=== PATIENT | male | born 1970 | race Hispanic/Latino ===

== ENCOUNTER 2019-10-22 12:30 | Inpatient (IN) | payer OTHER ==
[~2019-10-22] VITALS: Ht 167.6 cm; Wt 103.0 kg
--- NOTE | 2019-10-22 13:02 | Emergency Department Note ---
History of Present Illnes History of Present Illness Chief Complaint: COVID PUI History of Present Illness This is a 49 year old male arrives to the ED with complaints of cough shortness of breath. Patient states he tested positive for CoVID 19 and his symptoms are worsening. Patient informed his doctors at [facility] and was told to come to the ED . Chief Complaint Comment Patient in from home with reports that he was called today and made aware that his Covid 19 test was positive. Patient reports that his tested positive last week. Patient states that he is experiencing shortness of breath since tuesday night and it has gotten worse since then. Historian: Patient Arrival Mode: Car Onset (how long ago): day(s) Severity: moderate Onset quality: gradual Timing of current episode: constant Progression: worsening Chronicity: new Context: Reports recent illness Relieving factors: none Exacerbating factors: none Associated symptoms: Reports diaphoresis, Reports fever/chills, Reports headaches Past Medical/Family History Physician Review I have reviewed the patient's past medical and family history. Any updates have been documented here. Past Medical History Recent Fever: Yes Clinical Suspicion of Infectio: No New/Unexplained Change in Ment: No Past Medical History: None Other Surgery: Abdominal hernia repair Social History Smoking Cessation: Unknown if ever smoked Other Last Tetanus: UTD Review of Systems Review of Systems Constitutional: Reports fever, Reports weakness EENTM: Reports no symptoms Cardiovascular: Reports no symptoms Respiratory: Reports as per HPI, Reports chest congestion Gastrointestinal: Reports no symptoms Genitourinary: Reports no symptoms Musculoskeletal: Reports no symptoms Integumentary: Reports no symptoms Neurological: Reports no symptoms Psychological: Reports no symptoms Endocrine: Reports no symptoms Hematological/Lymphatic: Reports no symptoms Physical Exam Related Data Allergies: Coded Allergies: No Known Allergies (Unverified , 06/10/11) Triage Vital Signs Vital Signs Date Time Temp Pulse Resp B/P (MAP) Pulse Ox O2 Delivery O2 Flow Rate FiO2 10/22/19 12:38 98.6 117 26 131/89 93 Vital signs reviewed: Yes Physical Exam CONSTITUTIONAL Constitutional: Present well-developed, Present well-nourished, Present ill appearing (tachypnea) HENT HENT: Present normocephalic, Present atraumatic, Present oropharynx clear/moist, Present nose normal HENT L/R: Present left ext ear normal, Present right ext ear normal EYES Eyes: Reports PERRL, Reports conjunctivae normal NECK Neck: Present ROM normal PULMONARY Pulmonary: Present effort normal, Present respiratory distress CARDIOVASCULAR Cardiovascular: Present regular rhythm, Present heart sounds normal, Present capillary refill normal, Present normal rate GASTROINTESTINAL Abdominal: Present soft, Present nontender, Present bowel sounds normal GENITOURINARY Genitourinary: Present exam deferred SKIN Skin: Present warm, Present dry MUSCULOSKELETAL Musculoskeletal: Present ROM normal NEUROLOGICAL Neurological: Present alert, Present oriented x 3, Present no gross motor or s ensory deficits PSYCHOLOGICAL Psychological: Present mood/affect normal, Present judgement normal Results Laboratory Lab results reviewed: Yes Laboratory comments Laboratory Tests Test 10/22/19 12:50 10/22/19 12:47 White Blood Count 4.20 x10e3/uL (4.8-10.8) Red Blood Count 6.06 x10e6/uL (4.3-5.7) Hemoglobin 17.3 g/dL (14.0-18.0) Hematocrit 51.5 % (38.2-49.6) Mean Corpuscular Volume 85.0 fL (81-99) Mean Corpuscular Hemoglobin 28.5 pg (28-32) Mean Corpuscular Hemoglobin Concent 33.6 g/dL (31-35) Red Cell Distribution Width 12.8 % (11.7-14.4) Platelet Count 138 x10e3/uL (140-360) Neutrophils (%) (Auto) 68.8 % (38.7-80.0) Lymphocytes (%) (Auto) 23.1 % (18.0-39.1) Monocytes (%) (Auto) 7.4 % (4.4-11.3) Eosinophils (%) (Auto) 0.0 % (0.0-6.0) Basophils (%) (Auto) 0.2 % (0.0-1.0) Neutrophils # (Auto) 2.9 (2.1-6.9) Lymphocytes # (Auto) 1.0 (1.0-3.2) Monocytes # (Auto) 0.3 (0.2-0.8) Eosinophils # (Auto) 0.0 (0.0-0.4) Basophils # (Auto) 0.0 (0.0-0.1) Absolute Immature Granulocyte (auto 0.02 x10e3/uL (0-0.1) Sodium Level 136 mmol/L (136-145) Potassium Level 3.9 mmol/L (3.5-5.1) Chloride Level 97 mmol/L (98-107) Carbon Dioxide Level 25 mmol/L (22-29) Anion Gap 17.9 mmol/L (8-16) Blood Urea Nitrogen 10 mg/dL (7-26) Creatinine 1.15 mg/dL (0.72-1.25) Estimat Glomerular Filtration Rate > 60 ML/MIN (60-) BUN/Creatinine Ratio 9 (6-25) Glucose Level 108 mg/dL (74-118) Calcium Level 9.0 mg/dL (8.4-10.2) Total Bilirubin 0.7 mg/dL (0.2-1.2) Aspartate Amino Transf (AST/SGOT) 101 IU/L (5-34) Alanine Aminotransferase (ALT/SGPT) 106 IU/L (0-55) Alkaline Phosphatase 137 IU/L (40-150) Creatine Kinase 879 IU/L (30-200) Creatine Kinase MB 0.90 ng/mL (0-5.0) Troponin I 0.008 ng/mL (0-0.300) Total Protein 8.0 g/dL (6.5-8.1) Albumin 3.6 g/dL (3.5-5.0) Globulin 4.4 g/dL (2.3-3.5) Albumin/Globulin Ratio 0.8 (0.8-2.0) Imaging Imaging results reviewed: Yes Impressions IMPRESSION: Mildly increased interstitial and perihilar opacities identified which are nonspecific but can be seen in the setting of edema or an atypical infectious/inflammatory process. No evidence for lobar consolidation. Procedures 12 Lead ECG Interpretation ECG Interpretation : ECG: ECG 2 Rhythm: sinus tachycardia Rate: tachycardia QRS axis: left ST segments normal: Yes Clinical Impression: normal ECG Critical Care Time Total Critical Care Time (min): 45 Critical care time exclusive o: separately billable procedures Critcal care necessary due to: renal failure Comments Patient at high risk of respiratory failure/compromise- required early intervention and frequent re-evaluations in the ED Assessment & Plan Medical Decision Making MDM 49-year-old male arrives the ED with complaint cough, shortness of breath and fever. Patient hypoxic in the ED, require supplemental O2. Patient admitted, pulmonary/nursing department chairperson consulted, infectious disease consultED. Chest x-ray findings reviewed, ceftriaxone and Zithromax ordered. Type and screen done in the event patient may require plasmapheresis. Patient's findings are viral in origin and there is no concerns of bacterial sepsis at time of admission. Assessment & Plan Final Impression: (1) COVID-19 Depart Disposition: ADMITTED Last Vital Signs Date Time Temp Pulse Resp B/P (MAP) Pulse Ox O2 Delivery O2 Flow Rate FiO2 10/22/19 12:38 98.6 117 26 131/89 93 PARVEEN RAMIREZ DO Oct 22, 2019 12:45
[2019-10-22 13:21] LABS: BASOPHILS % 0.2 % (0.0-1.0); HEMATOCRIT 51.5 % (38.2-49.6); HEMOGLOBIN 17.3 g/dL (14.0-18.0); LYMPHOCYTES % 23.1 % (18.0-39.1); MEAN CORPUSCULAR HEMOGLOBIN 28.5 pg (28-32); MEAN CORPUSCULAR HGB CONC 33.6 g/dL (31-35); MONOCYTES # (AUTO) 0.3 (0.2-0.8); MONOCYTES % 7.4 % (4.4-11.3); NEUTROPHILS # (AUTO) 2.9 (2.1-6.9); NEUTROPHILS % 68.8 % (38.7-80.0); PLATELET COUNT 138 x10e3/uL (140-360); RED BLOOD COUNT 6.06 x10e6/uL (4.3-5.7); RED CELL DISTRIBUTION WIDTH 12.8 % (11.7-14.4)
--- NOTE | 2019-10-22 13:39 | NUR ---
consult [id number]
[2019-10-22 13:48] LABS: ALANINE AMINOTRANSFERASE 106 IU/L (0-55); ALBUMIN 3.6 g/dL (3.5-5.0); ALBUMIN/GLOBULIN RATIO 0.8 (0.8-2.0); ALKALINE PHOSPHATASE 137 IU/L (40-150); ANION GAP 17.9 mmol/L (8-16); BLOOD UREA NITROGEN 10 mg/dL (7-26); BUN/CREATININE RATIO 9 (6-25); CARBON DIOXIDE 25 mmol/L (22-29); CHLORIDE 97 mmol/L (98-107); CREATINE KINASE 879 IU/L (30-200); CREATININE, SERUM 1.15 mg/dL (0.72-1.25); EST GLOMERULAR FILTRATION RATE > 60 ML/MIN (60-); GLUCOSE 108 mg/dL (74-118); POTASSIUM 3.9 mmol/L (3.5-5.1); SODIUM 136 mmol/L (136-145)
--- NOTE | 2019-10-22 13:55 | Diagnostic Imaging Report ---
EXAM: CHEST SINGLE (PORTABLE) DATE: 10/22/2019 1:26 PM INDICATION: Shortness breath, chest pain COMPARISON: None FINDINGS: The trachea is midline. There is minimal elevation of the right hemidiaphragm. There are mildly increased interstitial and perihilar opacities present. There is no evidence for large focal consolidation, pneumothorax, or significant pleural effusion. The cardiomediastinal silhouette is within normal limits. No acute osseous abnormality is identified. IMPRESSION: Mildly increased interstitial and perihilar opacities identified which are nonspecific but can be seen in the setting of edema or an atypical infectious/inflammatory process. No evidence for lobar consolidation. Signed by: Dr. Tarik Brooks MD on 10/22/2019 1:51 PM
--- NOTE | 2019-10-22 14:05 | NUR ---
patient arrived to room 184. set up in room and placed on 2L via NC. patient aware to call for help if needed. vitals stable. call light within reach. wctm
[2019-10-22] MEDS ORDERED: ONDANSETRON HCL INJ 2MG/ML 2ML 2 MG/ML VIAL IV PRN (14:15)
[2019-10-22] MEDS ORDERED: ALBUTEROL SULFATE HFA 8GM INHALATION AEROSOL INH PRN (14:15)
[2019-10-22 14:29] VITALS: BP 117/91
[2019-10-22 14:32] VITALS: BP 117/91
[2019-10-22 14:33] VITALS: BP 117/91
[2019-10-22] MEDS ORDERED: SUCCINYLCHOLINE CHLORIDE 20 MG/ML 10ML VIAL ONE (14:48)
[2019-10-22] MEDS ORDERED: ETOMIDATE 2 MG/ML 10 ML INJ IV ONE (14:48)
[2019-10-22] MEDS ORDERED: VECURONIUM BROMIDE FOR INJ 20 MG VIAL ONE (14:48)
[2019-10-22] MEDS ORDERED: WATER STERILE 10 ML VIAL ONE (14:48)
[2019-10-22] MEDS ORDERED: SODIUM CHLORIDE 0.9% 1000ML 1,000 ML ONE (14:54)
[2019-10-22] MEDS: CEFTRIAXONE SOD 1 GM/NS 50 ML 50 ML IV SCH (15:07)
[2019-10-22] MEDS: ASCORBIC ACID 500 MG TAB PO SCH (15:07)
[2019-10-22] MEDS: ACETAMINOPHEN 325 MG TAB PO PRN (15:07)
[2019-10-22] MEDS: AZITHROMYCIN 500MG/NS 250 ML 250 ML IV SCH (15:56)
[2019-10-22] MEDS: SODIUM CHLORIDE 0.9% 1000ML 1,000 ML IV SCH (16:28)
[2019-10-22] MEDS: GUAIFENESIN/CODEINE 10 ML CUP PO PRN ×2 (17:54→22:05)
--- NOTE | 2019-10-22 18:19 | Consultation ---
DATE OF CONSULTATION: HISTORY OF PRESENT ILLNESS: This patient, who is a 49-year-old male, no past medical history, who has been sick for a week. His was sick and she was diagnosed with COVID-19, so they told him to go and check it, he came back positive. The patient comes in because he is little bit short of breath. The patient was just getting fevers and sick in general. The patient is being admitted. I am asked to see him. He is currently lying in bed. His O2 saturation was 88% and he was put on 2 L, and now he is feeling better. PAST MEDICAL HISTORY: He denies. PAST SURGICAL HISTORY: He denies. ALLERGIES: NKA. SOCIAL HISTORY: He drinks occasionally. No smoking, drug abuse, or alcohol abuse. FAMILY HISTORY: Otherwise noncontributory. REVIEW OF SYSTEMS: At present time, HEENT: There is some headache, but there is no visual changes or hearing changes. GI: Some nausea. No vomiting. No diarrhea. CARDIAC: There is no arrhythmia. NEURO: No seizure activity. SKIN: There is no other rash. JOINT: Negative. LABORATORY DATA: Reviewed. His white count 4.2 and hemoglobin 17. His COVID-19 is pending, but outside was positive. Sodium 136, potassium 3.9, and creatinine 1.15. He had a chest x-ray, which was interstitial opacities. PHYSICAL EXAMINATION: GENERAL: Currently alert and oriented. Does not seem to be in acute distress. VITAL SIGNS: Stable, afebrile. HEENT: He is not icteric. NECK: Supple. CHEST: Few crackles. COR: S1 and S2. No S3, S4, or murmur. ABDOMEN: Soft. IMPRESSION: I think the patient with COVID-19 pneumonia, concerned about community-acquired pneumonia. We will put him on Rocephin and azithromycin. Start him on oxygen as needed. Lovenox 30 subcutaneous q.12. Monitor his O2 saturation. Give him zinc p.o. supplement and vitamin C p.o. supplement. Reassess in the morning. MD CHRIS Norwood/FLASH /[id number]
[2019-10-22 18:22] VITALS: BP 127/83
[2019-10-22 20:00] VITALS: BP 127/86
--- NOTE | 2019-10-22 20:00 | NUR ---
Respiratory Therapist made aware of CPAP order by dr. Mckeon.
[2019-10-22 20:52] VITALS: BP 127/86
[2019-10-22] MEDS ORDERED: HEPARIN SOD (PORCINE) 5,000 UNIT/ML VIAL SC SCH (21:00)
--- NOTE | 2019-10-22 21:15 | History and Physical ---
PRIMARY CARE PHYSICIAN: Dr. Dhaliwal at [facility]. CHIEF COMPLAINT: Shortness of breath, cough, fever and chills. HISTORY OF PRESENT ILLNESS: This is a 49-year-old male with no past medical history, presented to the ER with complaints of increasing shortness of breath, fever, chills, cough, and diarrhea. He reports started feeling bad a week ago, he went to his PCP and was tested for COVID, which was positive 4 days ago. He reports his symptoms continue to worsen, with increased shortness of breath, unable to catch his breath. He denies any nausea, vomiting, chest pain, abdominal pain, dysuria, productive cough. Upon arrival to the ER, he was noted to be hypoxic with an O2 saturation of 89% on room air. Chest x-ray shows mildly improved interstitial and perihilar opacities identified, which are nonspecific, but can be seen in the setting of edema or an atypical infectious inflammatory process. He is admitted for further evaluation and management. PAST MEDICAL HISTORY: None. PAST SURGICAL HISTORY: Reports hernia repair x3. FAMILY MEDICAL HISTORY: He reports father has high blood pressure. SOCIAL HISTORY: He denies tobacco or illicit drug use. Reports occasional alcohol use. ALLERGIES: NO KNOWN DRUG ALLERGIES. REVIEW OF SYSTEMS: A 12-system review was negative except as stated in the HPI. PHYSICAL EXAMINATION: VITAL SIGNS: Temperature 100.5, pulse is 117, respirations 20, blood pressure 117/91, pulse ox is 89 on room air. LABORATORY DATA: WBC 4.20, hemoglobin 17.3, hematocrit 51.5, platelets 138. Sodium 136, potassium 3.9, BUN 10, creatinine 1.15. Estimated GFR is greater than 60. AST 101, ALT 106, creatine kinase 879. COVID PCR is pending. IMAGING: A chest x-ray shows mildly increased interstitial and perihilar opacities identified, which are nonspecific, but can be seen in the setting of edema or atypical infectious or inflammatory process. No evidence of lobular consolidation. IMPRESSION: 1. Acute respiratory distress due to viral pneumonia with COVID-19. Started on Rocephin and azithromycin, Tylenol p.r.n. fever. ID and gearcase assembler on the case. O2 via nasal cannula. 2. Mild rhabdomyolysis. CK is 879. We will continue with IV fluid hydration and repeat labs. 3. Elevated liver function tests. He denies any history of hepatitis. We will continue to trend. 4. Mild thrombocytopenia. Platelet is 138. 5. Obesity with BMI of 36. We will discuss lifestyle modification. 6. Deep vein thrombosis prophylaxis. We will start on heparin subcu. Dictated by WONG Bynum Deepikaching Miah Dixon MD MY/MODL /[id number]
--- NOTE | 2019-10-22 21:36 | Consultation ---
DATE OF CONSULTATION: Pulmonary Consultation Patient of Dr. Dixon and Dr. Bazzi. 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 Family has been ill, but he has been most severely affected. MEDICATIONS: He takes no medications. ALLERGIES: NO KNOWN ALLERGIES. PAST SURGICAL HISTORY: He has had abdominal hernia surgery. SOCIAL HISTORY: Born in the [place], [place]. Rarely drinks. Does not smoke. FAMILY HISTORY: Positive for multiple members with COVID-19 infection. He is the most severely affected, however. PHYSICAL EXAMINATION: VITAL SIGNS: Temperature 100.5, respirations 20, pulse 117, blood pressure 117/91, O2 saturation 89% on 2 L oxygen. HEENT: Head, normocephalic and atraumatic. NECK: Trachea midline. LUNGS: Diminished breath sounds with inability to take a full inspiration. HEART: Regular rhythm. ABDOMEN: Obese, nontender. EXTREMITIES: Nonedematous. IMPRESSION: 1. Severe coronavirus disease-2019 infection. 2. Possible sleep apnea. 3. Borderline hyperviscosity. 4. Hemoglobin is 17.3. 5. Confirmation of his coronavirus disease-2019 status is pending, but in view of the family history, it is strongly suspected. 6. Liver functions are elevated. CPKs elevated. Globulins elevated. PLAN: IV fluids, cautiously. The patient is somewhat dry side. Empiric antibiotics, pending results of COVID-19 testing. We will start Remdesivir if positive, supplemental oxygen if needed. Thank you for this kind referral. Sadiq Mckeon MD DS/MODL /[id number]
--- NOTE | 2019-10-22 23:10 | NUR ---
Spoke with Respiratory therapist regarding CPAP order. She will verify with the other therapist.
[2019-10-23] VITALS (8 sets, daily range): BP systolic 103–130; BP diastolic 77–94
[2019-10-23 05:34] LABS: BASOPHILS % 0.3 % (0.0-1.0); HEMATOCRIT 45.5 % (38.2-49.6); HEMOGLOBIN 15.4 g/dL (14.0-18.0); LYMPHOCYTES # (AUTO) 0.7 (1.0-3.2); LYMPHOCYTES % 16.9 % (18.0-39.1); MEAN CORPUSCULAR HEMOGLOBIN 28.6 pg (28-32); MEAN CORPUSCULAR HGB CONC 33.8 g/dL (31-35); MEAN CORPUSCULAR VOLUME 84.4 fL (81-99); MONOCYTES # (AUTO) 0.3 (0.2-0.8); MONOCYTES % 8.3 % (4.4-11.3); NEUTROPHILS # (AUTO) 2.9 (2.1-6.9); NEUTROPHILS % 74.2 % (38.7-80.0); PLATELET COUNT 132 x10e3/uL (140-360); RED BLOOD COUNT 5.39 x10e6/uL (4.3-5.7); RED CELL DISTRIBUTION WIDTH 12.8 % (11.7-14.4)
[2019-10-23 05:44] LABS: ALANINE AMINOTRANSFERASE 111 IU/L (0-55); ALBUMIN 2.9 g/dL (3.5-5.0); ALBUMIN/GLOBULIN RATIO 0.7 (0.8-2.0); ALKALINE PHOSPHATASE 127 IU/L (40-150); ANION GAP 17.9 mmol/L (8-16); BLOOD UREA NITROGEN 11 mg/dL (7-26); BUN/CREATININE RATIO 12 (6-25); CALCIUM 7.9 mg/dL (8.4-10.2); CARBON DIOXIDE 21 mmol/L (22-29); CHLORIDE 102 mmol/L (98-107); CREATININE, SERUM 0.95 mg/dL (0.72-1.25); EST GLOMERULAR FILTRATION RATE > 60 ML/MIN (60-); GLUCOSE 107 mg/dL (74-118); POTASSIUM 3.9 mmol/L (3.5-5.1); SODIUM 137 mmol/L (136-145)
[2019-10-23] MEDS: ZINC SULFATE 50 MG CAP PO SCH (08:47)
[2019-10-23] MEDS: ASCORBIC ACID 500 MG TAB PO SCH ×2 (08:47→16:21)
[2019-10-23] MEDS: ENOXAPARIN SOD INJ 40 MG/0.4 ML SYR SC SCH ×2 (09:00→20:05)
--- NOTE | 2019-10-23 09:20 | Diagnostic Imaging Report ---
EXAM: CHEST SINGLE (PORTABLE) DATE: 10/23/2019 5:15 AM INDICATION: Pneumonia COMPARISON: Chest radiograph 10/22/2019 FINDINGS: LINES/TUBES:EKG leads overlie the chest. LUNGS:The lungs are moderately inflated. Unchanged mildly increased interstitial opacities without focal consolidation. PLEURA:No pleural effusion or pneumothorax. MEDIASTINUM:The cardiomediastinal silhouette appears unchanged in size and shape. BONES/SOFT TISSUES:No acute osseous injury. ABDOMEN:No free air under the diaphragm. IMPRESSION: No significant interval change. Signed by: Otoniel Holcomb MD on 10/23/2019 9:17 AM
[2019-10-23] MEDS ORDERED: HEPARIN SOD (PORCINE) 5,000 UNIT/ML VIAL SC SCH (14:00)
[2019-10-23] MEDS: CEFTRIAXONE SOD 1 GM/NS 50 ML 50 ML IV SCH (14:09)
[2019-10-23] MEDS ORDERED: DIPHENHYDRAMINE HCL 25 MG CAP PO ONE (14:30)
[2019-10-23] MEDS ORDERED: DIPHENHYDRAMINE HCL 25 MG CAP PO PRN (15:00)
[2019-10-23] MEDS: AZITHROMYCIN 500MG/NS 250 ML 250 ML IV SCH (15:20)
[2019-10-23] MEDS ORDERED: REMDESIVIR IV SCH (16:00)
[2019-10-23] MEDS: ACETAMINOPHEN 325 MG TAB PO PRN (17:22)
--- NOTE | 2019-10-23 17:51 | NUR ---
Translated with patient via [employer] link for patients [facility], Rep number [id number].
--- NOTE | 2019-10-23 19:31 | Progress Note ---
DATE: CONSULTANTS: 1. Dr. Pichardo, [place]. 2. Dr. Guajardo with Pulmonary. CHIEF COMPLAINT: Shortness of breath, cough, fever, and chills. SUBJECTIVE: The patient continues to be hypoxic, nasal cannula is changed to non-rebreather. Saturating 93%. Discussed about possible need for ventilation if continues to worsen. He denies any fever, chills, nausea, vomiting, abdominal pain, or chest pain. PHYSICAL EXAMINATION: VITAL SIGNS: Temperature 99.7, pulse 101, respirations 20, blood pressure 119/77, pulse ox 90% on non-rebreather. GENERAL: No acute distress. HEENT: Normocephalic, atraumatic. CARDIOVASCULAR: Regular rate and rhythm. LUNGS: Decreased breath sounds. ABDOMEN: Soft and nontender. NEUROLOGIC: Alert, awake, and oriented x3. MUSCULOSKELETAL: Moves all extremities. No edema. SKIN: Dry and intact. LABORATORY DATA: WBC 3.4, hemoglobin 15.4, hematocrit 40.5, platelets 132. Sodium 137, potassium 3.9, CO2 21, BUN 11, creatinine 0.95. AST 106, ALT 111, creatine kinase 987, albumin 2.9. Coronavirus PCR is positive. Chest x-ray with no significant interval change. IMPRESSION: 1. Acute respiratory distress due to viral pneumonia with COVID-19. Continue Rocephin and azithromycin. Tylenol for fever and Mucinex cough as needed. ID and application services manager on board. Currently on non-rebreather mask. 2. Mild rhabdomyolysis with no acute kidney injury. CK 987. We will continue with light IV fluid hydration. We will monitor labs. 3. Elevated liver function tests. He denies any hepatitis, continue to trend. 4. Mild thrombocytopenia. Platelets 128. 5. Obesity with BMI of 36. 6. Deep vein thrombosis prophylaxis. Lovenox b.i.d. PLAN: Continue current treatment, supportive care, further recommendation per Pulmonology. Dictated by WONG Bynum Alok Dixon MD MY/MODL /[id number]
--- NOTE | 2019-10-23 19:45 | NUR ---
Resumed care of patient. Patient awake and sitting up in bed, respirations even and unlabored, pulse ox 94% on 10L NRB, vital signs stable, no s/s of distress or c/o pain at this time. Bed locked and in lowest position, side rails up x3, patient belongings and call light placed within reach. Patient instructed to call for assistance if needed, verbalized understanding. All safety measures in place. Will continue to monitor.
[2019-10-23] MEDS: SODIUM CHLORIDE 0.9% 1000ML 1,000 ML IV SCH (19:58)
[2019-10-23] MEDS ORDERED: OXAZEPAM 15 MG CAP PO PRN (21:00)
--- NOTE | 2019-10-23 23:13 | NUR ---
Informed by tele that patient O2 dropped to 80%. Found patient awake and resting in bed, SOB and tachypneic. Patient stated that he just stood up to use urinal and removed his NRB because "it was too short and the urinal was on the floor." Provided O2 extension, elevated HOB, and placed urinal within reach on bedside table. Pulse ox 93% on 10L NRB. Will continue to monitor.
[2019-10-24] VITALS (15 sets, daily range): BP systolic 106–144; BP diastolic 72–102
[2019-10-24 05:42] LABS: BASOPHILS % 0.2 % (0.0-1.0); HEMATOCRIT 48.9 % (38.2-49.6); LYMPHOCYTES # (AUTO) 0.7 (1.0-3.2); LYMPHOCYTES % 12.4 % (18.0-39.1); MEAN CORPUSCULAR HEMOGLOBIN 28.4 pg (28-32); MEAN CORPUSCULAR HGB CONC 32.7 g/dL (31-35); MEAN CORPUSCULAR VOLUME 86.7 fL (81-99); MONOCYTES # (AUTO) 0.4 (0.2-0.8); MONOCYTES % 7.4 % (4.4-11.3); NEUTROPHILS # (AUTO) 4.3 (2.1-6.9); NEUTROPHILS % 79.4 % (38.7-80.0); PLATELET COUNT 158 x10e3/uL (140-360); RED BLOOD COUNT 5.64 x10e6/uL (4.3-5.7); RED CELL DISTRIBUTION WIDTH 13.1 % (11.7-14.4)
[2019-10-24 06:01] LABS: ANION GAP 19.1 mmol/L (8-16); BLOOD UREA NITROGEN 10 mg/dL (7-26); BUN/CREATININE RATIO 11 (6-25); CALCIUM 8.1 mg/dL (8.4-10.2); CARBON DIOXIDE 20 mmol/L (22-29); CHLORIDE 104 mmol/L (98-107); CREATININE, SERUM 0.88 mg/dL (0.72-1.25); EST GLOMERULAR FILTRATION RATE > 60 ML/MIN (60-); GLUCOSE 102 mg/dL (74-118); POTASSIUM 4.1 mmol/L (3.5-5.1); SODIUM 139 mmol/L (136-145)
--- NOTE | 2019-10-24 07:07 | NUR ---
Informed by tele that patient's O2 dropped to 73% at one point. Patient seen ambulating around room, pulse ox dangling off finger. Patient stated he "just got tired of lying in bed" and wanted to get up for a bit. Currently sitting on side of bed, pulse ox 92% on NRB. Instructed to call for assistance if needed, verbalized understanding. Hand off given to oncoming nurse.
[2019-10-24] MEDS: SODIUM CHLORIDE 0.9% 1000ML 1,000 ML IV SCH ×2 (07:12→22:33)
--- NOTE | 2019-10-24 07:22 | Progress Note ---
DATE: 10/23/2019 SUBJECTIVE: Mr. Valerio is complaining of shortness of breath today. He is still coughing. PHYSICAL EXAMINATION: GENERAL: Alert, oriented, does not seem in acute distress. VITAL SIGNS: Stable, currently afebrile. T 99.3, heart rate of 106, respirations 20. The patient is on high-flow oxygen, now 90%. HEENT: Not icteric. NECK: Supple. CHEST: Crackles bilateral. COR: S1 and S2. ABDOMEN: Soft. LABORATORY DATA: Reviewed. Sodium 137, potassium 3.9 creatinine 0.85, glucose 107. White count 3.84. IMPRESSION: COVID-19. We will start him on remdesivir. Discussed with the patient. It is an investigational drug and they approved this for severe cases. He can refuse if he does want to, but the patient did agree. He wants to take it. He was on remdesivir 200 mg IV piggyback then q.24 hours. Continue azithromycin. Continue Rocephin. Continue zinc, vitamin C, and Lovenox as ordered, oxygen as needed. I will follow. MD CHRIS Norwood/FLASH /[id number]
[2019-10-24] MEDS: ENOXAPARIN SOD INJ 40 MG/0.4 ML SYR SC SCH ×2 (08:52→21:04)
[2019-10-24] MEDS: ASCORBIC ACID 500 MG TAB PO SCH ×2 (08:52→17:00)
[2019-10-24] MEDS: ZINC SULFATE 50 MG CAP PO SCH (08:52)
[2019-10-24 10:27] LABS: LYMPHOCYTES % (MANUAL) 12 % (19-48); MONOCYTES % (MANUAL) 4 % (3.4-9.0); NEUTROPHILS % (MANUAL) 82 % (40-74); PLATELET ESTIMATE ADEQUATE; PLATELET MORPHOLOGY COMMENT NORMAL; RBC MORPHOLOGY COMMENT NORMAL
--- NOTE | 2019-10-24 10:43 | NUR ---
Patient oxygen saturations were very low this morning. This chief underwriter informed Dr. Mckeon, who came and assesed patient. He stated he explained options to the patient for VapoTherm and ventilation. Patient told Dr. Mckeon he did not want to be ventilated at this time. Dr. Mckeon requested Dr. Dixon talk to patient about possible code status change if his request for no intubation stands. Patient was explained about a VapoTherm nasal cannula, to which he agreed. Vapotherm was set up- 40L and he is at 95% on it. Patient is still very jittery and nervous. Will continue to closely monitor and we are just waiting on a bed in ICU to transfer him there.
--- NOTE | 2019-10-24 11:21 | Diagnostic Imaging Report ---
TECHNIQUE: Frontal view of the chest. INDICATION: ^covid ^[id number] ^1050 COMPARISON: Prior day. IMPRESSION: Lines and hardware: Stable. Heart and mediastinum: Stable. Lungs and pleura: Stable right infrahilar and left lower lung zone patchy airspace opacities. No pleural effusion. No pneumothorax. Soft tissues and bones: No acute abnormality. Signed by: Sonido Anders MD on 10/24/2019 11:18 AM
[2019-10-24] MEDS ORDERED: REMDESIVIR 100 MG IN 0.9% NS 100 ML IV SCH (14:00)
--- NOTE | 2019-10-24 14:20 | NUR ---
Patient transferred to ICU per protocol due to being on HiFo (Vapotherm). Patient transferred without any issues. Handed report and paperwork off to Ifeoma.
[2019-10-24] MEDS: CEFTRIAXONE SOD 1 GM/NS 50 ML 50 ML IV SCH (15:02)
[2019-10-24] MEDS ORDERED: MIDAZOLAM HCL 5MG/ML 10ML VIAL 100 ML IV ONE ×2 (15:30→19:54)
[2019-10-24] MEDS ORDERED: MIDAZOLAM HCL 2 MG/2 ML VIAL ONE (15:30)
--- NOTE | 2019-10-24 15:51 | Progress Note ---
DATE: SUBJECTIVE: Mr. Valerio is short of breath. His O2 saturation dropped here to be on 100% oxygen now. I had a long discussion with him and he is agreeable to be intubated if need to. He is feeling much better now off the Vapotherm and 100% ventilation. PHYSICAL EXAMINATION: GENERAL: He is currently alert, oriented. VITAL SIGNS: Stable, afebrile. HEENT: He is not icteric. NECK: Supple. CHEST: Clear. HEART: S2, S2. ABDOMEN: Soft. IMPRESSION: Coronavirus disease-19, respiratory failure, and elevated liver enzyme. Continue remdesivir. Continue Lovenox, zinc oxide, vitamin C, azithromycin, and Rocephin. He is moving to ICU, but he looks much better at present time, but earlier he was not looking like this, so we will keep a close eye on him. MD CHRIS Norwood/MODL /[id number]
[2019-10-24] MEDS ORDERED: FENTANYL 2000MCG/NS 250 250 ML ONE (16:02)
--- NOTE | 2019-10-24 17:04 | Diagnostic Imaging Report ---
TECHNIQUE: Frontal view of the chest. INDICATION: ^INTUBATION ^Y COMPARISON: 5 hours prior IMPRESSION: Lines and hardware: ET tube terminates 2.4 cm above the daniel; recommend retraction. Additional midline catheter is looped within the mid esophagus; recommend repositioning. Heart and mediastinum: Stable. Lungs and pleura: Stable bilateral patchy airspace opacities. No pleural effusion. No pneumothorax. Soft tissues and bones: No acute abnormality. Signed by: Sonido Anders MD on 10/24/2019 5:01 PM
[2019-10-24] MEDS: AZITHROMYCIN 500MG/NS 250 ML 250 ML IV SCH (17:05)
--- NOTE | 2019-10-24 17:06 | Diagnostic Imaging Report ---
TECHNIQUE: Single view of the abdomen. HISTORY: ^ngt placement. COMPARISON: None. IMPRESSION: Enteric catheter projects over the esophagus. Recommend advancement. Nonobstructive radiographic bowel gas pattern. No acute bony abnormality. No free air within the imaged abdomen. Signed by: Sonido Anders MD on 10/24/2019 5:03 PM
[2019-10-24] MEDS: ROCURONIUM BROMIDE 250 MG in SODIUM CHLORIDE 0.9% 250ML 225 ML IV SCH ×2 (17:51→22:29)
[2019-10-24] MEDS: FENTANYL 2000MCG/NS 250 250 ML IV PRN ×2 (17:52→22:30)
--- NOTE | 2019-10-24 19:26 | Operative Report ---
DATE OF PROCEDURE: SURGEON: Wilman Jimenez MD PROCEDURE: Endotracheal intubation. PREOPERATIVE DIAGNOSIS: Respiratory failure. POSTOPERATIVE DIAGNOSIS: Respiratory failure. CONSENT: Consent was obtained from the patient. MEDICATIONS: Versed 2 mg, etomidate 20 mg, and succinylcholine 100 mg. PROCEDURE IN DETAIL: The patient was placed in a supine position. He was preoxygenated with an Ambu bag and a PEEP valve to increase his saturation to 90%. A 3-0 MAC blade was used with the GlideScope. The glottis was visualized and an 8.0 endotracheal tube was passed on the first attempt without difficulty. There were equal breath sounds bilaterally and there was good CO2 return. COMPLICATIONS: None. ESTIMATED BLOOD LOSS: None. Wilman Jimenez MD [facility]/MODL /[id number]
[2019-10-24] MEDS: MIDAZOLAM HCL 5MG/ML 10ML VIAL 100 ML IV PRN (20:05)
--- NOTE | 2019-10-24 20:45 | NUR ---
Dr. Mariia Starks called and stated that he would like to have the patient transferred to the [facility] in [place].
--- NOTE | 2019-10-24 21:30 | NUR ---
Viky Vickers utilities and maintenance supervisor called and stated that called her and gave order to transfer pt to the [facility].
--- NOTE | 2019-10-24 21:45 | NUR ---
called and requested I notify the pts that he is requesting the pt be transferred to the medical center for possible future need for ECMO but to also tell her that the pt has not have new clinical changes.
--- NOTE | 2019-10-24 21:48 | NUR ---
Pts notified per 's request. Will call pts back once I have room assignment from the transfer center.
--- NOTE | 2019-10-24 22:15 | NUR ---
Pts and (sister in law) called at this time with oil house attendant Viky Garland RN and myself and notified of room and unit the pt is being transferred to at [facility]. Pts gave consent and Viky Garland RN witnessed.
[2019-10-24 22:40] LABS: ABG HCO3 29 mmol/L (22-26); ABG PCO2 72 mmHg (35-45); ABG PH 7.21 (7.35-7.45); ABG PO2 139 mmHg (80-105)
--- NOTE | 2019-10-24 23:11 | Progress Note ---
DATE: 10/24/2019 CONSULTANTS: 1. Dr. Pichardo with Infectious Disease. 2. Dr. Mckeon with Pulmonary. CHIEF COMPLAINT: Shortness of breath, cough, fever, and chills. SUBJECTIVE: The patient was seen in the ICU, intubated. According to nursing staff, he continue to be hypoxic even on high-flow O2. He was transferred to ICU and intubated per critical team. PHYSICAL EXAMINATION: VITAL SIGNS: Temperature 98.5, pulse 121, respirations 21, blood pressure 133/102, and pulse ox is 98% on the vent 100%. GENERAL: Intubated and sedated. CARDIOVASCULAR: Tachycardia with regular rhythm. LUNGS: Decreased breath sounds. ABDOMEN: Soft. NEUROLOGIC: Sedated. MUSCULOSKELETAL: No edema. SKIN: Dry and intact. LABORATORY DATA: WBC 5.41, hemoglobin 16, hematocrit 48.9, and platelets 158. Sodium 139, potassium 4.1, CO2 of 20, Anion gap 19, and creatinine 0.88. Estimated GFR is greater than 60. Calcium 8.1. CK 97. IMAGING: Chest x-ray, left lower lung patchy airspace opacities. No pleural effusion. No pneumothorax. Soft tissue no acute bony abnormalities, no obstructive radiographic bowel gas pattern and no free air within the abdomen. IMPRESSION: 1. Acute respiratory failure due to viral pneumonia with COVID-19. He was transferred to ICU and intubated. Continue on Rocephin and azithromycin. 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 2. Mild rhabdomyolysis with no acute kidney injury. Continue IV fluid hydration. 3. Elevated LFTs. We will continue to monitor. 4. Thrombocytopenia, improved. Platelets 158 today. 5. Deep vein thrombosis prophylaxis. Lovenox b.i.d. PLAN: Supportive therapy, bed management per Pulmonology, continue current treatment. Dictated by WONG Bynum Alok Dixon MD MY/MODL /[id number]
--- NOTE | 2019-10-24 23:45 | NUR ---
Report called to [facility] [address] (pt going to room 2). EMS present now and preparing to transport the pt as well.
[2019-10-25] MEDS: MIDAZOLAM HCL 5MG/ML 10ML VIAL 100 ML IV PRN (00:44)
[2019-10-25] MEDS ORDERED: PANTOPRAZOLE SODIUM 40 MG SUSPDR.PKT PO SCH (07:30)
== END 2019-10-25 01:17 | disposition short-term general hospital (02) | DRG 208 ==
LOC: ER 12:30 → ERHOLD 12:50 → IMCU 14:58 → ICU 10-24 14:20
PROVIDERS: ADMIT Internal Medicine; ATTEND Internal Medicine
PROC: 5A1935Z Respiratory Ventilation, Less than 24 Consecutive Hours (ICD-10-PCS; principal; 2019-10-24)
PROC: 0BH17EZ Insertion of Endotracheal Airway into Trachea, Via Natural or Artificial Opening (ICD-10-PCS; 2019-10-24)
DX: U07.1 COVID-19 (principal); J12.89 Other viral pneumonia; J80 Acute respiratory distress syndrome; J96.01 Acute respiratory failure with hypoxia; M62.82 Rhabdomyolysis; R06.03 Acute respiratory distress; D69.6 Thrombocytopenia, unspecified; E66.9 Obesity, unspecified; Z68.36 Body mass index [BMI] 36.0-36.9, adult; R79.89 Other specified abnormal findings of blood chemistry; G47.30 Sleep apnea, unspecified
CPT/HCPCS: 36415; 36600; 71045; 74018; 80048; 80053; 82550; 82553; 82805; 82948; 84484; 85025; 86850; 86900; 87070; 87205; 87635; 93005; 94002; 96361; 99284; J0330; J0456; J0696; J1644; J1650; J2250; J2405; J7030; J7050